=== PATIENT | male | born 1985 | race Caucasian/White ===

== ENCOUNTER 2017-10-06 10:12 | Emergency (ER) | payer SELFPAY ==
[~2017-10-06] VITALS: Ht 182.9 cm; Wt 89.8 kg
[2017-10-06 10:12] VITALS: BP_SYST 131
[2017-10-06] MEDS ORDERED: HYDROcodone/ACETAMIN 7.5-325 MG TAB PO ONE (11:30)
[2017-10-06 11:50] VITALS: BP_SYST 129
== END 2017-10-06 11:50 | disposition home or self-care (01) ==
LOC: SED 10:12
DX: S40.012A Contusion of left shoulder, initial encounter (principal); R03.0 Elevated blood-pressure reading, without diagnosis of hypertension; V19.9XXA Pedal cyclist (driver) (passenger) injured in unspecified traffic accident, initial encounter; Y93.89 Activity, other specified; Y92.410 Unspecified street and highway as the place of occurrence of the external cause; Y99.8 Other external cause status
CPT/HCPCS: 73030; 99284